=== PATIENT | female | born 1995 | race Hispanic/Latino ===

== ENCOUNTER 2022-05-26 17:46 | Emergency (ER) | payer OTHER ==
[2022-05-26 19:34] LABS: Urine Blood 1+ (Negative); Urine Glucose Negative (Negative); Urine Protein Negative (Negative)
[2022-05-26 19:41] LABS: Absolute Lymphocytes (CBC) 2.8 K/uL (0.7-4.9); Hematocrit 40.9 % (36.0-45.0); Lymphocytes % 27.2 % (15.3-44.8); MCV 88.2 fL (80-100); MPV 7.1 fL (7.6-11.3); RBC Red Blood Cell Count 4.64 M/uL (3.86-4.86)
[2022-05-26 20:02] LABS: Albumin 4.1 g/dL (3.4-5.0); Bilirubin Total 0.3 mg/dL (0.2-1.0); Potassium 3.9 mmol/L (3.5-5.1); Protein, Total 8.3 g/dL (6.4-8.2)
[2022-05-26] MEDS ORDERED: NA CHLORIDE 0.9% 1,000 ML ONE (20:23)
[2022-05-26] MEDS ORDERED: CEFTRIAXONE 1000 MG/VIAL ONE (20:23)
[2022-05-26] MEDS ORDERED: KETOROLAC 30 MG/ML INJ ONE (20:23)
[2022-05-26 20:24] LABS: Urine Bacteria <20 /HPF (<20); Urine Crystals Unidentified Few /HPF (None Seen); Urine Mucus Slight /HPF (None Seen); Urine RBC <5 /HPF (None Seen)
--- NOTE | 2022-05-26 22:31 | RAD REPORT ---
EXAM DESCRIPTION: CT - Abdomen Pelvis W Contrast - 05/26/2022 9:55 pm CLINICAL HISTORY: Abdominal pain COMPARISON: none. TECHNIQUE: Computed axial tomography of the abdomen pelvis was obtained. 100 cc Isovue-300 was admin istered intravenously. Oral contrast was not requested which limits evaluation of bowel and appendix All CT scans are performed using dose optimization technique as appropriate and may include automated exposure control or mA/KV adjustment according to patient size. FINDINGS: The liver, spleen, pancreas, adrenal and kidneys appear unremarkable. There is no evidence of diverticulitis. Normal appendix. 2.7 centimeter right ovarian cyst which is irregularly shaped. It probably has recently ruptured. Sma ll amount of free fluid in the pelvis IMPRESSION: 2.7 centimeter right ovarian cyst which is irregularly shaped. It probably has recently ruptured. Small amount of free fluid in the pelvis
--- NOTE | 2022-05-26 22:48 | EDPHYS ---
Physician Documentation [facility] Name: Sierra Kelsey Age: 26 yrs Sex: Female : 1995 Arrival Date: 05/26/2022 Time: 17:47 Bed 25 Private MD: ED Physician Jose M Drake HPI: 05/26 19:00 This 26 yrs old Female presents to ER via Ambulatory with complaints of cp Abdominal Pain. 19:00 The patient presents with abdominal pain in the lower abdomen, with right worse than cp left. Onset: The symptoms/episode began/occurred last week. The symptoms radiate to right back. Associated signs and symptoms: Pertinent positives: nausea, Pertinent negatives: anorexia, constipation, diarrhea, fever, vaginal discharge, vomiting. The symptoms are described as constant. Severity of pain: in the emergency department the pain is unchanged despite home interventions. 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 - Social history:: Smoking status: Patient denies any tobacco usage or history of. ROS: 19:05 Constitutional: Negative for body aches, chills, fever, poor PO intake. cp 19:05 Eyes: Negative for injury, pain, redness, and discharge. cp 19:05 ENT: Negative for drainage from ear(s), ear pain, sore throat, difficulty swallowing, difficulty handling secretions. 19:05 Respiratory: Negative for cough, shortness of breath, wheezing. 19:05 Abdomen/GI: Positive for abdominal pain, nausea, Negative for vomiting, diarrhea, constipation. 19:05 Back: Positive for radiated pain. 19:05 : Negative for hematuria, vaginal bleeding, vaginal discharge. 19:05 Neuro: Negative for altered mental status, dizziness, headache, weakness. 19:05 All other systems are negative. Exam: 19:10 Constitutional: The patient appears in no acute distress, alert, awake, non-toxic, well cp developed, well nourished, uncomfortable. 19:10 Head/Face: Normocephalic, atraumatic. cp 19:10 Eyes: Periorbital structures: appear normal, Conjunctiva: normal, no exudate, no injection, Sclera: no appreciated abnormality, Lids and lashes: appear normal, bilaterally. 19:10 ENT: External ear(s): are unremarkable, Nose: is normal, Mouth: Lips: moist, Oral mucosa: moist, Posterior pharynx: Airway: no evidence of obstruction, patent. 19:10 Chest/axilla: Inspection: normal. 19:10 Cardiovascular: Rate: normal, Rhythm: regular. 19:10 Respiratory: the patient does not display signs of respiratory distress, Respirations: normal, no use of accessory muscles, no retractions, labored breathing, is not present, Breath sounds: are clear throughout, no decreased breath sounds, no stridor, no wheezing. 19:10 Abdomen/GI: Inspection: abdomen appears normal, Bowel sounds: active, all quadrants, Palpation: soft, in all quadrants, moderate abdominal tenderness, in the right lower quadrant, rebound tenderness, is not appreciated, voluntary guarding, is elicited in the right lower quadrant. 19:10 Back: CVA tenderness, is absent. Vital Signs: 18:30 BP 136 / 91; Pulse 83; Resp 17; Temp 97.9; Pulse Ox 100% ; Weight 56.25 kg; Height 5 jl7 ft. 1 in. (154.94 cm); Pain 8/10; 20:00 BP 109 / 85; Pulse 77; Resp 18; Pulse Ox 100% on R/A; oe 21:11 BP 103 / 74; Pulse 79; Resp 16 S; Pulse Ox 100% on R/A; bb 22:04 BP 105 / 82; Pulse 79; Resp 16 S; Pulse Ox 100% on R/A; bb 23:08 BP 113 / 91; Pulse 79; Resp 16; Pulse Ox 100% on R/A; oe 23:10 BP 113 / 91; Pulse 86; Resp 16 S; Temp 98.1(O); Pulse Ox 100% on R/A; bb 18:30 Body Mass Index 23.43 (56.25 kg, 154.94 cm) jl7 MDM: 18:49 Patient medically screened. cp 19:30 Differential diagnosis: appendicitis, Ectopic , non-specific abd pain, Ovarian cp Torsion, Pelvic Inflammatory Disease, Pyelonephritis, Ureterolithiasis, urinary tract infection. 22:47 Data reviewed: vital signs, nurses notes, lab test result(s), radiologic studies, CT cp scan. 22:47 Counseling: I had a detailed discussion with the patient and/or guardian regarding: the cp historical points, exam findings, and any diagnostic results supporting the discharge/admit diagnosis, lab results, radiology results, to return to the emergency department if symptoms worsen or persist or if there are any questions or concerns that arise at home. Response to treatment: the patient's symptoms have markedly improved after treatment, and as a result, I will discharge patient. Special discussion: Based on the patient's Hx, exam, and Dx evaluation, there is no indication for emergent surgery or inpatient Tx. It is understood by the patient/guardian that if the Sx's persist or worsen they need to return immediately for re-evaluation. 05/26 18:50 Order name: CBC with Diff; Complete Time: 21:10 05/26 21:10 Interpretation: Normal except: MPV 7.1. 05/26 18:50 Order name: CMP; Complete Time: 21:10 05/26 21:11 Interpretation: Normal except: NA 134; AST 13; TP 8.3; GLOB 4.2; A/G 1.0. 05/26 18:50 Order name: Lipase; Complete Time: 21:10 05/26 18:50 Order name: Urine Microscopic Only; Complete Time: 21:10 05/26 21:11 Interpretation: Reviewed. 05/26 19:34 Order name: Urine Dipstick-Ancillary; Complete Time: 19:38 EDVT 05/26 19:38 Interpretation: Normal except: UBLD 1+; UNIT Positive; UESTR 1+. 05/26 19:36 Order name: Urine Culture jb5 05/26 18:50 Order name: IV Saline Lock; Complete Time: 19:35 05/26 18:50 Order name: Labs collected and sent; Complete Time: 19:35 05/26 18:50 Order name: Urine Dipstick-Ancillary (obtain specimen); Complete Time: 19:35 05/26 19:39 Order name: CT Abd/Pelvis - IV Contrast Only; Complete Time: 22:34 05/26 19:40 Order name: Urine --Ancillary (enter results) mw2 05/26 18:50 Order name: Urine Test (obtain specimen); Complete Time: 19:35 cp Administered Medications: 20:27 Drug: NS 0.9% 1000 ml Route: IV; Rate: 1 bolus; Site: right antecubital; bb 21:30 Follow up: IV Status: Completed infusion; IV Intake: 1000ml bb 20:28 Drug: Rocephin (cefTRIAXone) 1 grams Route: IV; Rate: calculated rate; Site: right bb antecubital; 23:11 Follow up: IV Status: Completed infusion; IV Intake: 10ml bb 20:28 Drug: Ketorolac 15 mg Route: IVP; Site: right antecubital; bb 23:12 Follow up: Response: Pain is decreased bb Disposition Summary: 05/26/22 22:47 Discharge Ordered Location: Home cp Problem: new cp Symptoms: have improved cp Condition: Stable cp Diagnosis - UTI/ Urinary tract infection, site not specified cp - Other and unspecified ovarian cysts cp Followup: cp - With: Private Physician - When: 2 - 3 days - Reason: Worsening of condition Discharge Instructions: - Discharge Summary Sheet cp - Ovarian Cyst cp - Urinary Tract Infection, Adult cp Forms: - Work release form bb - Medication Reconciliation Form cp - Thank You Letter cp - Antibiotic Education cp - Prescription Opioid Use cp Prescriptions: - Ibuprofen 600 mg Oral Tablet - take 1 tablet by ORAL route every 8 hours As needed take with food; 30 tablet; cp Refills: 0, Product Selection Permitted - Macrobid 100 mg Oral Capsule - take 1 capsule by ORAL route every 12 hours for 7 days; 14 capsule; Refills: 0, cp Product Selection Permitted Signatures: Dispatcher [employer] Isabelle Ritchie RN RN bb Dwaine Jennings PA PA Kishan Yusuf RN RN [email or web address] Corrections: (The following items were deleted from the chart) 18:32 18:32 PMHx: None; jl7 jl7 21:10 21:10 Normal except. cp cp 21:10 21:10 Normal except: NA 134. cp cp 21:11 21:10 Normal except: NA 134; AST 13. cp cp 21:11 21:11 Normal except: NA 134; AST 13; TP 8.3. cp cp 21:11 21:11 Normal except: NA 134; AST 13; TP 8.3; GLOB 4.2. cp cp
--- NOTE | 2022-05-26 22:48 | ER ---
Nurse's Notes [facility] Name: Sierra Kelsey Age: 26 yrs Sex: Female : 1995 Arrival Date: 05/26/2022 Time: 17:47 Bed 25 Private MD: Diagnosis: UTI/ Urinary tract infection, site not specified;Other and unspecified ovarian cysts Presentation: 05/26 18:30 Chief complaint: Patient states: RLQ abdominal pain x 6 days, denies N/V/D, denies jl7 fever, denies symptoms. Coronavirus screen: At this time, the client does not indicate any symptoms associated with coronavirus-19. Ebola Screen: No symptoms or risks identified at this time. Initial Sepsis Screen: Does the patient meet any 2 criteria? No. Patient's initial sepsis screen is negative. Does the patient have a suspected source of infection? No. Patient's initial sepsis screen is negative. Risk Assessment: Do you want to hurt yourself or someone else? Patient reports no desire to harm self or others. Onset of symptoms was May 21, 2022. 18:30 Method Of Arrival: Ambulatory 7 18:30 Acuity: YANICK 3 jl7 Triage Assessment: 18:32 General: Appears in no apparent distress. uncomfortable, Behavior is calm, cooperative, jl7 appropriate for age. Pain: Complains of pain in right lower quadrant Pain currently is 8 out of 10 on a pain scale. GI: Patient currently denies diarrhea, nausea, vomiting. 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 - Social history:: Smoking status: Patient denies any tobacco usage or history of. Screenin:30 Abuse screen: Denies threats or abuse. Nutritional screening: No deficits noted. bb Tuberculosis screening: No symptoms or risk factors identified. Fall Risk None identified. Assessment: 20:30 General: Appears in no apparent distress. uncomfortable, Behavior is cooperative, bb appropriate for age. Pain: Complains of pain in abdomen. Neuro: Level of Consciousness is awake, alert, obeys commands, Oriented to person, place, time, situation. Cardiovascular: Capillary refill < 3 seconds Patient's skin is warm and dry. Respiratory: Respiratory effort is even, unlabored, Respiratory pattern is regular. GI: Bowel sounds present X 4 quads. Abd is soft X 4 quads Abdomen is tender to palpation X 4 quads. Derm: Skin is pink, warm \T\ dry. Musculoskeletal: Circulation, motion, and sensation intact. 21:11 Reassessment: Patient is alert, oriented x 3, equal unlabored respirations, skin bb warm/dry/pink. awaiting diagnostic results. 21:56 Reassessment: Patient is alert, oriented x 3, equal unlabored respirations, skin bb warm/dry/pink. pt returned from CT scan via wheelchair accompanied by material handling technician, awaiting results. 23:10 Reassessment: Patient is alert, oriented x 3, equal unlabored respirations, skin bb warm/dry/pink. pt verbalized understanding of and agrees to plan of care discharge instructions given pt ambulated with steady gait to exit accompanied by family. Vital Signs: 18:30 BP 136 / 91; Pulse 83; Resp 17; Temp 97.9; Pulse Ox 100% ; Weight 56.25 kg; Height 5 jl7 ft. 1 in. (154.94 cm); Pain 8/10; 20:00 BP 109 / 85; Pulse 77; Resp 18; Pulse Ox 100% on R/A; oe 21:11 BP 103 / 74; Pulse 79; Resp 16 S; Pulse Ox 100% on R/A; bb 22:04 BP 105 / 82; Pulse 79; Resp 16 S; Pulse Ox 100% on R/A; bb 23:08 BP 113 / 91; Pulse 79; Resp 16; Pulse Ox 100% on R/A; oe 23:10 BP 113 / 91; Pulse 86; Resp 16 S; Temp 98.1(O); Pulse Ox 100% on R/A; bb 18:30 Body Mass Index 23.43 (56.25 kg, 154.94 cm) jl7 ED Course: 17:47 Patient arrived in ED. as 18:07 Dwaine Jennings PA is PHCP. cp 18:07 Jose M Drake MD is Attending Physician. cp 18:32 Triage completed. jl7 18:32 Arm band placed on right wrist. jl7 19:35 Inserted saline lock: 20 gauge in right antecubital area, using aseptic technique. jb5 Blood collected. 19:35 CBC with Diff Sent. jb5 19:35 CMP Sent. jb5 19:35 Lipase Sent. jb5 19:35 Urine Microscopic Only Sent. jb5 20:30 Patient has correct armband on for positive identification. Pulse ox on. NIBP on. Warm bb blanket given. 20:30 IV is patent, is intact. bb 21:56 Isabelle Dias, RN is Primary Nurse. bb 21:57 CT Abd/Pelvis - IV Contrast Only In Process Unspecified. EDMS 23:11 No provider procedures requiring assistance completed. IV discontinued, intact, bb bleeding controlled, No redness/swelling at site. Pressure dressing applied. Administered Medications: 20:27 Drug: NS 0.9% 1000 ml Route: IV; Rate: 1 bolus; Site: right antecubital; bb 21:30 Follow up: IV Status: Completed infusion; IV Intake: 1000ml bb 20:28 Drug: Rocephin (cefTRIAXone) 1 grams Route: IV; Rate: calculated rate; Site: right bb antecubital; 23:11 Follow up: IV Status: Completed infusion; IV Intake: 10ml bb 20:28 Drug: Ketorolac 15 mg Route: IVP; Site: right antecubital; bb 23:12 Follow up: Response: Pain is decreased bb Medication: 20:30 VIS not applicable for this client. bb Intake: 21:30 IV: 1000ml; Total: 1000ml. bb 23:11 IV: 10ml; Total: 1010ml. bb Outcome: 22:47 Discharge ordered by . cp 23:11 Discharged to home ambulatory, with family. bb 23:11 Condition: stable 23:11 Discharge instructions given to patient, Instructed on discharge instructions, follow up and referral plans. medication usage, Demonstrated understanding of instructions, follow-up care, medications, Prescriptions given X 1. 23:12 Patient left the ED. bb Signatures: Dispatcher [employer] EDMS Pam Webster Brenda, RN RN bb Dwaine Jennings, Juan Isaac cp, Jennifer jb5 Kishan Wick RN RN jl7 Corrections: (The following items were deleted from the chart) 18:32 18:32 PMHx: None; jl7 jl7
[2022-05-27 02:46] VITALS: O2SAT 100
[2022-05-27 02:51] VITALS: BP 113/91
[2022-05-27 02:52] VITALS: TEMP 98.1
== END 2022-05-26 23:12 | disposition home or self-care (01) ==
LOC: ER 17:46
DX: N39.0 Urinary tract infection, site not specified (principal); N83.299 Other ovarian cyst, unspecified side
CPT/HCPCS: 96365; 87088; 85025; 87086; 36415; 81025; 83690; 80053; 74177; 96375; 99284; 96366; Q9967; J7030; 81003; 81015; 87077; 87186